=== PATIENT | male | born 1990 | race African-American/Black ===

== ENCOUNTER 2020-11-07 12:59 | Emergency (ER) | payer MEDICAID, OTHER ==
[~2020-11-07] VITALS: Ht 193 cm; Wt 86.2 kg
--- NOTE | 2020-11-07 13:09 | NUR ---
PT IS IN ROOM #2A. DR ECKERT EVALUATED THE PT.
[2020-11-07] MEDS ORDERED: IBUPROFEN 600 MG TABLET PO ONE (13:15)
[2020-11-07] MEDS ORDERED: ACETAMINOPHEN ES 500 MG TABLET PO ONE (13:15)
[2020-11-07] MEDS ORDERED: IBUPROFEN 600 MG TABLET ONE (13:23)
[2020-11-07] MEDS ORDERED: ACETAMINOPHEN ES 500 MG TABLET ONE (13:24)
--- NOTE | 2020-11-07 14:02 | NUR ---
PT WAS D/C'd TO HOME. D/C INSTRUCTIONS GIVEN TO THE PT BY DR ECKERT.
[2020-11-07 14:06] VITALS: BP 129/81
== END 2020-11-07 14:07 | disposition home or self-care (01) ==
LOC: ER 12:59
DX: R07.89 Other chest pain (principal); M79.601 Pain in right arm; M79.604 Pain in right leg; V43.52XA Car driver injured in collision with other type car in traffic accident, initial encounter; Y92.410 Unspecified street and highway as the place of occurrence of the external cause
CPT/HCPCS: 71045; A4663; A9150

== ENCOUNTER 2021-05-08 15:55 | Emergency (ER) | payer MEDICAID ==
[~2021-05-08] VITALS: Ht 193 cm; Wt 86.2 kg
[2021-05-08] MEDS ORDERED: ACETAMINOPHEN ES 500 MG TABLET PO ONE (16:15)
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
[2021-05-08] MEDS ORDERED: IBUP-1957 PO (16:56)
[2021-05-08] MEDS ORDERED: HYDR-4209 PO (16:56)
--- NOTE | 2021-05-08 17:01 | NUR ---
PT MEDICATED FOR PAIN PER MD ORDER.
[2021-05-08] MEDS ORDERED: ACETAMINOPHEN ES 500 MG TABLET ONE (17:05)
[2021-05-08 17:08] VITALS: BP 149/84
--- NOTE | 2021-05-08 17:08 | NUR ---
DISCUSSED TEST RESULTS WITH PATIENT. DISCHARGED IN STABLE CONDITION.
== END 2021-05-08 17:09 | disposition home or self-care (01) ==
LOC: ER 15:56
DX: S23.41XA Sprain of ribs, initial encounter (principal); S39.91XA Unspecified injury of abdomen, initial encounter; V49.60XA Unspecified car occupant injured in collision with unspecified motor vehicles in traffic accident, initial encounter; Y92.410 Unspecified street and highway as the place of occurrence of the external cause; K59.00 Constipation, unspecified
CPT/HCPCS: 71101; A4663; A9150